=== PATIENT | female | born 2000 | race Caucasian/White ===

== ENCOUNTER 2022-11-19 09:30 | Emergency (ER) | payer OTHER, SELFPAY ==
[2022-11-19 09:32] VITALS: BP 138/77; PULSE 117; RESP 17; TEMP 36.8; O2SAT 100
--- NOTE | 2022-11-19 10:30 | ED.GENADUL_ITS ---
Discharge Plan Disposition Patient Disposition: Home Condition: Improving Discharge Details Clinical Impression: Pseudotumor cerebri Primary Care Provider: None,None ED Provider: Lelia Anderson Home Meds and New Rx's Prescriptions: New acetazolamide 250 mg tablet 250 mg PO BID Qty: 30 0RF No Action fluoxetine 20 mg capsule 20 mg PO DAILY Patient Comments: TAKE ONE CAPSULE BY MOUTH EVERY DAY Discharge Instructions Instructions: Idiopathic Intracranial Hypertension (ED) Additional Instructions: 1. Start acetazolamide 250 mg every 12 hours. 2. You should be contacted by the office of Dr. Barnhart, the neurologist with a follow-up appointment. 3. Return here for any new or worrisome symptoms. 4. Alternate 1000 mg of acetaminophen every 3 hours with 400 to 600 mg of ibuprofen as needed for pain. Discharge Data Discharge Physician: Lelia Anderson Medical Decision Making Medical Records Medical records reviewed: Yes I reviewed the patient's medical records. Imaging Data Radiologic Study: Imaging: MRI (MRI brain and orbits and neck and face with and without contrast) Radiologist's impression: Empty sella. Small amount of fluid around the optic nerves. Findings could be associated with pseudotumor cerebri. Lab Data Lab results reviewed: Yes I reviewed the patient's lab results. Lab results narrative: Essentially unremarkable slight elevation of ALT with normal AST HPI General Date/Time Provider Initiated Documentation: 11/19/22 10:30 . Information obtained by: patient and old records reviewed (Review of [facility]) . HPI Narrative: Time seen was 10:33 AM in bed. The patient is a healthy 22-year-old female who was sent in from [facility] for an MRI of the brain and orbits to rule out pseudotumor cerebri when she was found to have bilateral papilledema. The patient states that she made an appointment to have her eyes checked because she has had gradually increasing blurry vision over the past year. She does wear glasses for distance. She has noticed that she has more difficulty reading signs on the highway recently. She is not currently experiencing a headache but does get intermittent headaches radiating towards her neck. She had cold symptoms last week. They are resolving. She did not do a COVID test. She also has a history of vertigo which comes and goes and is usually aggravated by lying on her left side. She denies any back pain. She denies any nausea or vomiting, numbness or tingling. She denies any confusion, photophobia or any other aggravating or alleviating symptoms. No fever or chills. Currently pain-free Related Data Home Medications Medication Instructions Recorded Confirmed acetazolamide 250 mg tablet 250 mg PO BID #30 tabs 11/19/22 fluoxetine 20 mg capsule 20 mg PO DAILY 11/19/22 11/19/22 Previous Rx's Medication Instructions Recorded acetazolamide 250 mg tablet 250 mg PO BID #30 tabs 11/19/22 Allergies Allergy/AdvReac Type Severity Reaction Status Date / Time Penicillins Allergy Unknown Unverified 11/19/22 09:42 General Stated Complaint: EyeProblem XOCHILT: 3 Review of Systems Constitutional Constitutional: Denies fever(s) and Denies headache(s) Eyes Eyes: Reports as per HPI, Reports blurry vision and Denies exophthalmos ENT Ears, Nose, Mouth, and Throat: Denies headache(s) Comments: Recent cold symptoms Cardiovascular Cardiovascular: Denies chest pain and Denies dyspnea Respiratory Respiratory: Denies dyspnea Neurologic Neurologic: Denies headache(s) PFSH All Active Problems Pseudotumor cerebri (Acute) Social History Smoking/Tobacco Use Status: Current every day Tobacco Type: e-cigarettes Smoking risk assessment performed?: Yes Alcohol Intake: current Drug use: Never Substance use type: does not use Exam Const General: cooperative, healthy appearing, comfortable, no acute distress, well developed, well groomed and well hydrated Nutritional Appearance: average body habitus and well nourished Orientation: alert, awake and oriented x3 Other: Vital signs are within normal limits except for her pulse which was mildly elevated HENMT Head: normal to inspection, normocephalic and atraumatic Ears: hearing grossly normal bilaterally, external ears normal, TM's normal bilaterally, mastoids normal and no periauricular adenopathy General nose exam: external nose normal, nares normal and no nasal discharge Face and sinus: normal facial exam, sinuses nontender and face symmetric Mouth: oral mucosae normal, lip normal, tongue normal, oropharynx normal, moist mucous membranes and other (Normal phonation. The patient is handling secretions.) Teeth and gingiva: dentition normal Throat: posterior oropharynx normal and uvula midline Eyes General: appearance normal, both eyes and all related structures Eyelids: eyelids normal Conjunctivae: conjunctivae normal Sclera: sclerae normal Cornea: corneas normal Pupils: PERRL EOM: EOM intact bilaterally and No nystagmus Direct ophthalmoscopy: optic disc abnormality bilaterally and photophobia not present Other: The patient does have mild papilledema bilaterally Neck Neck: normal visual inspection, full ROM, no lymphadenopathy, no meningeal signs, trachea midline and supple Lymphatic: no lymphadenopathy noted Chest Chest: normal inspection of the chest Resp Effort & Inspection: normal respiratory effort, able to speak in complete sentences, no audible wheezes, no nasal flaring, no respiratory distress, no retractions, no stridor, not tachypneic, no tracheal deviation, no use of accessory muscles, No prolonged expiratory phase and other (Normal inspiratory to expiratory ratio.) Auscultation: clear to auscultation bilaterally, no rales, no rhonchi, no wheezes and no rubs Tactile Fremitus: tactile fremitus absent Cardio Jugular venous pressure: no JVD Palpation: normal PMI Rate: regular rate Rhythm: regular rhythm Heart Sounds: S1 normal, S2 normal, no gallops, no murmurs and no rubs GI Inspection: normal to inspection and non-distended Palpation: soft, no hepatosplenomegaly, no guarding and nontender Percussion: normal to percussion Auscultation: normal bowel sounds General: No CVA tenderness Back/Spine/Pelvis Back: no CVA tenderness and No back tenderness Cervical Spine: normal cervical lordosis, cervical ROM normal, No cervical muscular tenderness, No pain with cervical ROM, No cervical spinal tenderness and No step off deformity Thoracic/Lumbar Spine: thoracic and lumbar spine normal to inspection, No thoracic spinal tenderness and No lumbar spinal tenderness Pelvis: no pain with anterior-posterior compression and no pain with lateral compression Skin General skin exam: no rashes or lesions noted, turgor normal, no petechiae, no purpura and other (Skin is normal for ethnicity.) Lesions: no lesions Rashes: no rashes Trauma: no lacerations or abrasions Neuro General: patient alert, patient awake, patient oriented x3, moves all extremities, no meningeal signs, no focal motor deficits and CN's II-XI intact bilaterally Cranial Nerves: CN's II-XI intact bilaterally, PERRL, accommodation normal, EOM intact bilaterally, no nystagmus, facial strength normal, tongue midline, hearing normal and no nystagmus Cognition: normal cognition Speech: speech normal Gait: normal gait Motor: muscle tone normal throughout and strength 5/5 throughout Sensory Exam: no sensory deficits noted Coordination: [id number] test normal, Romberg test normal, tandem gait normal and Does not sway with eyes open Pupils: Mid position: bilateral Other: Negative Romberg Extrem General: normal to inspection, full ROM, capillary refill normal, no clubbing, cyanosis or edema and no calf tenderness Psych Appearance: grossly normal Affect: normal affect Attitude: cooperative Thought Process: normal Thought Content: normal Insight: insight good Judgment: judgment good Other: The patient appears to have capacity make medical decisions. Course I have received the report and the patient's MRI from radiology and have paged neurology. I have updated the patient and her fianc? on the MRI and the pending neurology consult. Consultations Consultation #1: Dr. Barnhart from neurology. She recommended starting the patient on acetazolamide 250 mg twice daily and asked that we arrange for the patient to follow-up with her as an outpatient. Time: 17:41 Vital Signs Vital signs: Vital Signs Temperature 36.8 C 11/19/22 09:32 Pulse 117 H 11/19/22 09:32 Respiratory Rate 17 11/19/22 09:32 Blood Pressure 138/77 11/19/22 09:32 Pulse Oximetry 100 11/19/22 09:32 Temperature 36.8 C 11/19/22 09:32 Temperature Source Temporal Artery Scan 11/19/22 09:32 Pulse 117 H 11/19/22 09:32 Respiratory Rate 17 11/19/22 09:32 Respiratory Effort Normal 11/19/22 09:41 Blood Pressure 138/77 11/19/22 09:32 Blood Pressure Position Sitting 11/19/22 09:32 Pulse Oximetry 100 11/19/22 09:32 Oxygen Delivery Method Room Air 11/19/22 09:32 Oxygen Flow Rate 0 11/19/22 09:32 Pain Level 0 11/19/22 09:32 PAWSS Have you Been Recently Intoxicated or Drunk Within the Last 30 days?: No Have you Ever Experienced Previous Episodes of Alcohol Withdrawal?: No Have you ever Experienced Withdrawal Seizures?: No Have you ever Experienced Delirium Tremens(DT)s?: No Have you ever undergone Alcohol Rehabilitation Treatment (i.e, inpt ot outpatient treatment programs)?: No Have you ever Experienced Blackouts?: No Have you ever Combined Alcohol with other Downers within the last 90 days?: No Have you ever Combined Alcohol with any other Substance of Abuse during the last 90 days?: No Result: 0
--- NOTE | 2022-11-19 10:45 | DI.MRI_ITS ---
Exam(s) MR BRAIN ORBIT FACE NECK WO/W EXAM: MR BRAIN ORBIT FACE NECK WO/W CLINICAL HISTORY: rule out pseudotumor cerebri TECHNIQUE: Multiplanar multisequence MRI of the brain was performed. Post gadolinium sequences perf ormed of the brain and orbits. 20 mL Dotarem. COMPARISON: No exams were available for comparison FINDINGS: VENTRICLES AND EXTRA AXIAL SPACES: Normal in size and morphology for the patient's age. HEMORRHAGE: None. CEREBRAL PARENCHYMA: No focus of restricted diffusion to suggest acute infarct. No space-occupying le bladimir identified. MIDLINE SHIFT: None. BRAINSTEM/CEREBELLUM: Normal. CALVARIUM: Normal. VISUALIZED PARANASAL SINUSES/MASTOIDS: Mild mucosal thickening maxillary and ethmoid sinuses. Pituitary: Partial empty sella. Vascular flow voids are intact. ORBITS: Mild mascara artifact. The anterior and posterior chambers of the globes are intact. The ret robulbar fat is unremarkable. Extraocular muscles are unremarkable. OPTIC NERVES: The intracranial and extracranial portions of the optic nerves are within normal limits . Optic chiasm is within normal limits. No MRI evidence of optic neuritis identified. A small amount of fluid is present around the optic nerves. No kinking of optic nerves. No abnormal surrounding p ostcontrast enhancement. SOFT TISSUES: The superior opthalmic veins are unremarkable. Remaining soft tissues are unremarkable. OTHER FINDINGS: Venous sinuses appear patent and show normal enhancement. IMPRESSION: Empty sella. Small amount of fluid around the optic nerves. Both findings could be associated with pseudotumor cerebri. Findings discussed with Dr. Anderson of the emergency department. DATA REPOSITORY:
[2022-11-19] MEDS: Normal Saline 1,000 ML 125 ML IV (11:19)
[2022-11-19 11:41] LABS: ALT 73 U/L (14-59); AST 23 U/L (15-37); Albumin 4.2 g/dL (3.4-5.0); Alkaline Phosphatase 98 U/L (46-116); Anion Gap 8.2 mmol/L (3-11); BUN 8 mg/dL (7-18); Bilirubin, Total 0.6 mg/dL (0.2-1.0); CO2 28.8 mmol/L (21.0-32.0); CREATININE 0.8 mg/dL (0.55-1.02); Calcium 8.9 mg/dL (8.5-10.1); Chloride 100 mmol/L (98-107); Estimated GFR 106.77 (mL/min/1.73m2); Glucose 96 mg/dL (74-106); Potassium 3.7 mmol/L (3.5-5.1); Sodium 137 mmol/L (136-145); Total Protein 8.4 g/dL (6.4-8.2)
[2022-11-19 14:23] VITALS: BP 130/88; PULSE 104; RESP 18; O2SAT 100
[2022-11-19] MEDS: Gadoterate meglumine 20 ML SYRINGE IVP (15:11)
[2022-11-19] MEDS: Acetaminophen 500 MG TAB 1000 MG PO (17:07)
--- NOTE | 2022-11-19 17:52 | NUR.NOTE ---
Nursing Note: Referral faxed to [facility] Neurology for psudotumor cerebri within 1 weeks.
[2022-11-19 18:24] VITALS: BP 136/82; PULSE 102; TEMP 36.7; O2SAT 97
[2022-11-19] MEDS: acetaZOLAMIDE 250 MG TAB PO (18:26)
== END 2022-11-19 18:32 | disposition home or self-care (01) ==
PROVIDERS: Emergency Provider Emergency Medicine Emergency Medical Services
DX: H47.10 Unspecified papilledema (principal); G93.2 Benign intracranial hypertension; F17.290 Nicotine dependence, other tobacco product, uncomplicated
CPT/HCPCS: 36415; 70553; 80053; 81025; 96360; 96361; 99285; 70543